=== PATIENT | male | born 1940 | race Caucasian/White ===

== ENCOUNTER → 2016-08-25 | Outpatient (CLI) | payer MEDICARE, OTHER ==
--- NOTE | 2016-08-25 15:49 | MRI ---
EXAM DESCRIPTION: Brain MRI. CLINICAL HISTORY: Headache. COMPARISON: None. TECHNIQUE: Multiplanar, multisequence MR images were acquired without IV contrast. FINDINGS: The midline structures are unremarkable on today's exam. There are a few T2 hyperintensities noted within the cerebral white matter on today's study. These are nonspecific given their limited number and distribution. The ventricles are midline and unremarkable. No abnormal extra-axial fluid. The basilar cisterns are unremarkable. No restricted diffusion on today's study to suggest acute infarct. Orbits and globes are unremarkable. Paranasal sinuses are clear. Mastoid air cells are clear. IMPRESSION: Today's exam demonstrates only a few T2 hyperintensities. These may be a normal variant or associated with early in mild chronic microvascular ischemic change. No findings to account for patient's headaches. The remaining study is unremarkable demonstrating no findings to account for patient's headache. Electronically signed by: London Gordon MD 08/25/2016 15:47
== END ==
LOC: MRI 12:52
PROVIDERS: ATTEND Family Medicine
DX: H81.13 Benign paroxysmal vertigo, bilateral (principal)

== ENCOUNTER → 2016-11-03 | Outpatient (CLI) | payer MEDICARE, OTHER | END | disposition home or self-care (01) | LOC: GMA 12:06 | PROVIDERS: ATTEND Nurse Practitioner Family | DX: E04.8 Other specified nontoxic goiter (principal) ==

== ENCOUNTER → 2016-11-04 | Outpatient (CLI) | payer MEDICARE, OTHER ==
--- NOTE | 2016-11-04 15:36 | US ---
EXAM DESCRIPTION: Thyroid CLINICAL HISTORY: OTHER SPECIFIED NONTOXIC GOITER COMPARISON: None. TECHNIQUE: Real-time sonographic images of the thyroid are obtained. FINDINGS: The right lobe thyroid measures 3.9 x 1.5 x 1.5 cm. Nodule 1: Size: 12 x 10 x 7 mm Location: Upper pole right lobe 1.Composition: Solid 2.Echogenicity: Hypoechoic 3.Shape: Wider than tall 4.Margins: Ill-defined 5.Echogenic foci: Absent. The isthmus measures 4 mm in thickness. The left lobe measures 3.2 x 1.5 x 1.7 cm. The left lobe is diffusely homogeneous and normal in echogenicity. IMPRESSION: There is a small hypoechoic solid nodule mid pole the right lobe thyroid measuring 1.2 cm. This does not meet criteria for biopsy based on size. Consider six-month sonographic imaging follow-up. Electronically signed by: Hayes Wheatley MD 11/04/2016 3:36 PM CDT
== END | disposition home or self-care (01) ==
LOC: US 13:25
PROVIDERS: ATTEND Nurse Practitioner Family
DX: E04.8 Other specified nontoxic goiter (principal)

== ENCOUNTER → 2017-02-06 | Outpatient (CLI) | payer MEDICARE, OTHER | END | disposition home or self-care (01) | LOC: LAB.O 10:22 | PROVIDERS: ATTEND Internal Medicine Rheumatology | DX: Z79.899 Other long term (current) drug therapy (principal); M85.89 Other specified disorders of bone density and structure, multiple sites ==

== ENCOUNTER → 2017-03-18 | Outpatient (CLI) | payer MEDICARE, OTHER | END | disposition home or self-care (01) | LOC: GMAM 17:01 | PROVIDERS: ATTEND Family Medicine | DX: R94.6 Abnormal results of thyroid function studies (principal) ==

== ENCOUNTER → 2017-04-17 | Outpatient (CLI) | payer MEDICARE, OTHER | LOC: LAB.O 13:55 | PROVIDERS: ATTEND Otolaryngology Otolaryngology/Facial Plastic Surgery | DX: R49.0 Dysphonia (principal) ==

== ENCOUNTER → 2017-05-06 | Outpatient (CLI) | payer MEDICARE, OTHER | END | disposition home or self-care (01) | LOC: GMAM 14:12 | PROVIDERS: ATTEND Family Medicine | DX: R53.83 Other fatigue (principal); Z00.00 Encounter for general adult medical examination without abnormal findings; E29.1 Testicular hypofunction; Z12.5 Encounter for screening for malignant neoplasm of prostate | CPT/HCPCS: 84403; 84439; 84443; G0103 ==

== ENCOUNTER → 2018-02-02 | Outpatient (CLI) | payer MEDICARE, OTHER ==
--- NOTE | 2018-02-02 15:51 | US ---
THYROID ULTRASOUND CLINICAL INFORMATION: Thyroid nodule. TECHNIQUE: Routine transcutaneous scannin-D and Doppler modes. COMPARISON: Thyroid ultrasound 11/04/2016. FINDINGS: Thyroid size: Right 4.3 x 1.8 x 1.6 cm. Left 4.0 x 1.8 x 1.7 cm. Isthmus 1.7 mm thickness. Texture: Heterogeneous. Estimated total number of nodules >/=1 cm: 1 Number of spongiform nodules >/=2 cm not described below (TR1): 0 Number of mixed cystic and solid nodules >/=1.5 cm not described below (TR2): 0 Nodule #: 1 Maximum size: 1.0 cm; All dimensions 0.9 x 0.7 cm Location: right; mid Composition: solid/almost completely solid (2) Echogenicity: hypoechoic (2) Shape: not [id number] (0) Margins: ill-defined (0) Echogenic foci: none (0) ACR TI-RADS total points: 4. ACR TI-RADS risk category: TR4 (4-6 points) Significant change in size (>/= 20% in two dimensions and minimal increase of 2 mm): Yes Change in features: Yes Change in ACR TI-RADS risk category: Yes ACR TI-RADS recommendation: Follow-up ultrasound in 1 year Nodule #: 2 Maximum size: 0.7 cm; All dimensions 0.5 x 0.4 cm Location: left; upper Composition: solid/almost completely solid (2) Echogenicity: hypoechoic (2) Shape: not [id number] (0) Margins: ill-defined (0) Echogenic foci: none (0) ACR TI-RADS total points: 4. ACR TI-RADS risk category: TR4 (4-6 points) Significant change in size (>/= 20% in two dimensions and minimal increase of 2 mm): Yes Change in features: Yes Change in ACR TI-RADS risk category: Yes ACR TI-RADS recommendation: Follow-up ultrasound in 1 year Soft tissue surrounding the thyroid shows no distinct solid mass or cyst. No large calcifications or parenchymal edema. No overlying skin changes. No abnormal Doppler vascularity. IMPRESSION: 1 1 cm hypoechoic solid nodule in the right mid lobe with ill-defined margins no calcifications and parallel orientation. Not seen on the prior study. ACR TI RADS risk category TR 4. Recommend ultrasound follow-up in one year interval. Please see below.* 2. 7 mm hypoechoic solid nodule in the left upper lobe with ill-defined margins, and no calcifications, and parallel orientation. Not seen on the prior study. ACR TI RADS risk category TR 4. Since this may be a new nodule, recommend ultrasound follow-up in one year interval. 3. Soft tissue surrounding the thyroid gland is unremarkable. *ACR TI-RADS recommendations: TR5 (>/=7 points) - FNA if >/=1 cm, follow-up if 0.5 - 0.9 cm every year for 5 years TR4 (4-6 points) - FNA if >/=1.5 cm, follow-up if 1 - 1.4 cm in 1, 2, 3 and 5 years TR3 (3 points) - FNA if >/=2.5 cm, follow -up if 1.5 - 2.4 cm in 1, 3 and 5 years TR2 (2 points) and TR1 (0 points) - No FNA or follow-up * ACR TI-RADS recommends that no more than two nodules with the highest ACR TI-RADS total point should be biopsied and no more than four nodules should be followed. Electronically signed by: Dick Morales MD 02/02/2018 3:50 PM CDT
== END ==
LOC: US 10:30
PROVIDERS: ATTEND Family Medicine
DX: E04.1 Nontoxic single thyroid nodule (principal); J02.9 Acute pharyngitis, unspecified

== ENCOUNTER → 2018-02-18 | Outpatient (CLI) | payer MEDICARE, OTHER | LOC: GMAM 10:39 | PROVIDERS: ATTEND Family Medicine | DX: E53.8 Deficiency of other specified B group vitamins (principal); E04.1 Nontoxic single thyroid nodule; E29.1 Testicular hypofunction ==

== ENCOUNTER → 2018-07-20 | Outpatient (CLI) | payer MEDICARE, OTHER ==
--- NOTE | 2018-07-20 16:27 | MRI ---
EXAM DESCRIPTION: Cervical Spine: MRI. CLINICAL HISTORY: 77 years Male NECK PAIN COMPARISON: Noncontrast cervical MRI scan 01/27/2014. TECHNIQUE: Multiplanar, high-field MRI, multiple sequences, non-contrast Cervical spine. FINDINGS: C3-4: Disc desiccation and minimal disc space loss. Posterior midline broad-based disc bulge with right paramedian 4 mm protrusion abutting the right ventral cord and the right C4 nerve. Bilateral uncinate spurs. Borderline right neural foraminal stenosis and moderate left neural foraminal narrowing. Facets are unremarkable. C4-5 chronic disc space loss and Modic type II endplate reactive changes. Anterior bulging disc and spurs. Posterior mild disc bulging with spurs almost abutting the cord. Bilateral uncinate spurs. Moderate left neural foraminal narrowing with right neural foraminal stenosis. Mild canal narrowing. Bilateral facets are negative. C5-6: Disc space preserved and minimal disc desiccation no significant bulging. Mild left facet arthrosis. Mild left neural foraminal narrowing. Right neuroforamen and canal are patent. C6-7: Disc desiccation with posterior minimal 2 mm bulge. Left uncinate spur and facet spur with borderline left neural foraminal stenosis. Mild right neural foraminal narrowing. Facets are negative. Modic type II changes on the inferior endplate C7-T1: Disc unremarkable. Canal and neural foramina are patent. Facets are negative. Modic type II changes on the inferior endplate. Normal signal in the remaining discs with no bulging. Disc spaces preserved. Canal and neural foramina are patent. Facets are negative. Spinal alignment C2-C5 kyphosis.. No cord compression or cord edema. Atlantoaxial joint is unremarkable.. Base of the cerebellar tonsils is above the foramen magnum. Paravertebral soft tissues are negative. Vertebral bodies are not compressed at any level. Normal marrow signal in the remaining vertebral bodies and the posterior elements. IMPRESSION: 1. Right paramedian protrusion of the C3-4 disc abutting the ventral cord and the right C4 nerve. No significant change the prior study. Correlate for right C4 radiculopathy. Borderline right neural foraminal stenosis is progressed since the prior study. 2. Chronic spondylosis C4-5 showing no significant change since the prior study. Right neural foraminal stenosis is also unchanged. Correlate for right C5 radiculopathy. 3. C6-7 left uncinate and facet spur and posterior broad-based disc bulge. Moderate spondylosis superior C7 endplate. Left neural foraminal stenosis has progressed since the prior study. Correlate for left C7 radiculopathy. Electronically signed by: Dick Morales MD 07/20/2018 4:26 PM [facility]
== END ==
LOC: MRI 08:36
PROVIDERS: ATTEND Family Medicine
DX: M50.21 Other cervical disc displacement, high cervical region (principal); M47.892 Other spondylosis, cervical region; M48.02 Spinal stenosis, cervical region

== ENCOUNTER → 2018-11-11 | Outpatient (CLI) | payer MEDICARE, OTHER | LOC: GMAM 12:08 | PROVIDERS: ATTEND Family Medicine | DX: R00.2 Palpitations (principal) ==

== ENCOUNTER → 2019-04-11 | Outpatient (CLI) | payer MEDICARE, OTHER | LOC: GMAM 10:21 | PROVIDERS: ATTEND Family Medicine | DX: E53.8 Deficiency of other specified B group vitamins (principal); E04.8 Other specified nontoxic goiter; E78.1 Pure hyperglyceridemia; Z12.5 Encounter for screening for malignant neoplasm of prostate | CPT/HCPCS: 82607; 84439; 84443; G0103 ==

== ENCOUNTER → 2019-04-19 | Outpatient (CLI) | payer MEDICARE, OTHER ==
--- NOTE | 2019-04-19 18:55 | US ---
US THYROID CLINICAL STATEMENT: NONTOXIC SINGLE THYROID NODULE.. No palpable mass. No previous thyroid surgery or therapy. COMPARISON: Thyroid ultrasound 02/02/2018. TECHNIQUE: Transcutaneous scanning, grayscale and Doppler modes. FINDINGS: Size right thyroid lobe: 4.2 x 1.9 x 1.8 cm Size left thyroid lobe: 3.8 x 1.7 x 1.6 cm Size isthmus: 0.28 cm Estimated total number of nodules greater than or equal to 1 cm: 3. Right lobe heterogeneous but not vascular. No cysts. No large calcifications or parenchymal edema. No overlying skin changes. Nodule 1: Size: 1.5 x 1.3 x 1.2 cm Location: Right Mid Composition: solid or almost completely solid: 2 points Echogenicity: hypoechoic: 2 points Shape: wider than tall: 0 points Margins: ill-defined: 0 points Echogenic foci: none: 0 points ACR Total Points: 4; ACR TI-RADS risk category: TR4 - moderately suspicious nodule. Nodule 2: Size: 1.1 x 0.9 x 0.8 cm Location: Right Mid Composition: solid or almost completely solid: 2 points Echogenicity: hypoechoic: 2 points Shape: wider than tall: 0 points Margins: ill-defined: 0 points Echogenic foci: none: 0 points ACR Total Points: 4; ACR TI-RADS risk category: TR4 - moderately suspicious nodule. Nodule 3: Size: 1.0 x 0.6 x 0.4 cm Location: Left Lower Composition: solid or almost completely solid: 2 points Echogenicity: hypoechoic: 2 points Shape: wider than tall: 0 points Margins: ill-defined: 0 points Echogenic foci: none: 0 points ACR Total Points: 4; ACR TI-RADS risk category: TR4 - moderately suspicious nodule. Soft tissue around the thyroid gland showing no dominant soft tissue mass or distinct cyst. IMPRESSION: 1. Nodule 1: ACR TI-RADS 2017 Category TR4. Not seen on the prior study. Recommend: Ultrasound-guided fine needle aspiration. Recommendations based upon [facility] Best [facility] recommendations and ACR TI-RADS 2017 guidelines. Please see below*. 2. Nodule 2: ACR TI-RADS 2017 Category TR 4. Stable versus slight enlargement since the prior study (nodule 1). Recommend: Follow-up ultrasound in 1 year. 3. Nodule 3: ACR TI-RADS 2017 Category TR4. Not seen on the prior study. Recommend: Follow-up ultrasound in 1 year. 4. Nodule 2 In the left upper lobe on the prior study was not visualized on this study. Soft tissue around the thyroid gland is unremarkable. *ACR TI-RADS 2017 Recommendations for imaging follow-up of nodules: TR1: No FNA or follow up TR2: No FNA or follow up TR3: FNA if >/= 2.5 cm, follow up if 1.5 - 2.4 cm in 1, 3, and 5 years TR4: FNA if >/= 1.5 cm, follow up if 1.0 - 1.4 cm in 1, 2, 3, and 5 years TR5: FNA if >/= 1.0 cm, follow up if 0.5 - 0.9 cm every year for 5 years ACR TI-RADS recommends that no more than two nodules with the highest ACR TI-RADS total point should be biopsied and no more than four nodules should be followed. These recommendations do not apply to patients with increased risk for thyroid cancer or patients with symptomatic thyroid disease. Electronically signed by: Dick Morales MD 04/19/2019 6:54 PM CDT
== END ==
LOC: US 11:00
PROVIDERS: ATTEND Family Medicine
DX: E04.2 Nontoxic multinodular goiter (principal)

== ENCOUNTER → 2019-04-28 | Outpatient (CLI) | payer MEDICARE, OTHER ==
--- NOTE | 2019-04-29 13:08 | US ---
Thyroid Biopsy, Image-Guided: Ultrasound CLINICAL INFORMATION: New and large nodule in the right lobe. Meets requirements for aspirations sampling. Also new nodule in the left lobe for follow-up. TECHNIQUE: Procedure was explained to the patient with risks and benefits. The patient gave verbal and written consent. Sterile preparation draping. 1% xylocaine dermal anesthetic 9-1 mixture with sodium bicarbonate. Sterile ultrasound guidance. A total of 7 passes nodule in the right lobe; 4 needle samplings with a separate 1.5 inch, 25-gauge needle per sample, and 3 aspirations, with a separate 1.5 inch, 25-gauge needle/10-cc syringe set, per aspiration. Each sample was placed on a separate slide and fixed in 95% alcohol container. Saccomanno fluid drawn into aspirate needle and rinse injected into Saccomanno container. Specimens to be sent for pathologic examination at remote facility. . Patient tolerated procedure well. Biopsy #: 1 Nodule reference number based on prior diagnostic ultrasound:1 Maximum size: 1.5 cm Location: right; mid ACR TI-RADS risk category: TR4 (4-6 points) Reason for biopsy: meets ACR TI-RADS criteria Complications: None. Trace amount of hemorrhage in the nodule during biopsy. IMPRESSION: Successful ultrasound guided fine needle aspiration of right mid thyroid nodule. Not seen on the prior thyroid ultrasound in January 2018. ACR TI-RADS Risk Category TR 4 Electronically signed by: Dick Morales MD 04/29/2019 1:06 PM CDT
== END ==
LOC: US 09:09
PROVIDERS: ATTEND Family Medicine
DX: D44.0 Neoplasm of uncertain behavior of thyroid gland (principal)

== ENCOUNTER → 2020-05-16 | Outpatient (CLI) | payer MEDICARE, OTHER ==
--- NOTE | 2020-05-16 13:27 | CT ---
EXAM DESCRIPTION: Abdomen/Pelvis w/Contrast CLINICAL HISTORY: 79 years Male, UNSPECIFIED ABDOMINAL PAIN TECHNIQUE: This exam was performed according to our departmental dose-optimization program, which includes automated exposure control, adjustment of the mA and/or kV according to patient size and/or use of iterative reconstruction technique. COMPARISON: None at time of initial interpretation. FINDINGS: Visualized lung bases are grossly unremarkable. The liver is unremarkable. No suspicious hepatic lesion. No biliary dilatation. The gallbladder is unremarkable. The portal vein is patent. Calcified granuloma in the spleen. The pancreas and adrenal glands are unremarkable. Mild right hydroureteronephrosis. Bladder wall thickening with perivesicular fat stranding. No urolithiasis. Diminished right renal enhancement. Acute diverticulitis of the sigmoid colon. There is a pericolonic gas and fluid collection measuring 2.5 x 2.2 cm. Diffuse colonic diverticulosis. No findings to suggest appendicitis. Enteric contrast was administered. No evidence of bowel obstruction. No adenopathy. No drainable fluid collection. No free air. Normal caliber abdominal aorta. Mild atherosclerotic disease. No acute or suspicious osseous abnormality. Scattered degenerative changes present. IMPRESSION: 1. Acute sigmoid diverticulitis with an adjacent abscess measuring 2.5 cm. 2. Findings which suggests cystitis and possible right pyelonephritis with mild right hydroureteronephrosis. Electronically signed by: Nuno Rivas MD 05/16/2020 1:25 PM CDT
== END ==
LOC: CT 07:56
PROVIDERS: ATTEND Family Medicine
DX: K57.32 Diverticulitis of large intestine without perforation or abscess without bleeding (principal); N28.9 Disorder of kidney and ureter, unspecified; E04.1 Nontoxic single thyroid nodule

== ENCOUNTER → 2020-05-17 | Outpatient (CLI) | payer MEDICARE, OTHER | LOC: GMAM 16:29 | PROVIDERS: ATTEND Family Medicine | DX: N10 Acute pyelonephritis (principal); I10 Essential (primary) hypertension ==

== ENCOUNTER → 2020-05-28 | Outpatient (CLI) | payer MEDICARE, OTHER ==
--- NOTE | 2020-05-28 11:04 | CT ---
EXAM DESCRIPTION: Abdomen/Pelvis w/wo Contrast CLINICAL HISTORY: 79 years Male, DIVERTICULITIS OF SMALL INTESTINE WITH PERFORATION AND ABSCESS TECHNIQUE: This exam was performed according to our departmental dose-optimization program, which includes automated exposure control, adjustment of the mA and/or kV according to patient size and/or use of iterative reconstruction technique. COMPARISON: May 16, 2020 FINDINGS: Visualized lung bases are grossly unremarkable. The liver is unremarkable. No suspicious hepatic lesion. No biliary dilatation. The portal vein is patent. Gallbladder is unremarkable. The spleen, pancreas and adrenal glands are unremarkable. Symmetric renal parenchymal enhancement. No hydronephrosis. No urolithiasis. Unremarkable bladder. Improved sigmoid diverticulitis with mild residual inflammatory stranding in the pelvis. Previously identified abscess has resolved. There is no drainable fluid collection or free air. Diffuse colonic diverticulosis. No evidence of bowel obstruction. No findings to suggest appendicitis. No adenopathy. No focal fluid collection. No free air. Normal caliber abdominal aorta. Mild atherosclerotic disease. No acute or suspicious osseous abnormality. Scattered degenerative changes present. IMPRESSION: Improved sigmoid diverticulitis with mild residual inflammatory stranding in the pelvis. No drainable fluid collection or free air. Electronically signed by: Nuno Rivas MD 05/28/2020 11:03 AM CDT
== END ==
LOC: CT 09:00
PROVIDERS: ATTEND Family Medicine
DX: K57.00 Diverticulitis of small intestine with perforation and abscess without bleeding (principal)